=== PATIENT | male | born 1975 | race Caucasian/White ===

== ENCOUNTER 2022-02-12 19:28 | Inpatient (IN) ==
[2022-02-12] MEDS ORDERED: TORADOL IVP STA (20:04)
[2022-02-12 20:17] LABS: BASOPHILS % (AUTO) 0.3 % (0.0-3.0); EOSINOPHILS # (AUTO) 0.2 K/ul (0.0-0.7); EOSINOPHILS % (AUTO) 1.4 % (0.0-7.0); HEMATOCRIT 41.9 % (42.0-52.0); HEMOGLOBIN 14.4 g/dl (14.0-18.0); IMMATURE GRANULOCYTE % (AUTO) 0.2 % (0.0-5.0); LYMPHOCYTES # (AUTO) 2.7 K/uL (0.60-3.4); LYMPHOCYTES % (AUTO) 19.3 (10.0-50.0); MEAN CORPUSCULAR HEMOGLOBIN 29.7 pg (27.0-31.0); MEAN CORPUSCULAR HGB CONC 34.4 (31.8-35.4); MEAN CORPUSCULAR VOLUME 86.4 fl (80.0-94.0); MONOCYTES # (AUTO) 1.2 K/uL (0.4-2.0); MONOCYTES % (AUTO) 8.4 (0-10); NEUTROPHILS # (AUTO) 9.7 K/ul (2.0-6.9); NEUTROPHILS % (AUTO) 70.4 % (42.2-75.2); PLATELET COUNT 263 10^3/uL (140-440); RDW COEFFICIENT OF VARIATION 13.2 % (11.6-14.8); RED BLOOD COUNT 4.85 10^6/ul (4.70-6.10); WHITE BLOOD COUNT 13.76 K/ul (4.2-10.2)
[2022-02-12 20:29] LABS: ALBUMIN 4.21 g/dL (3.5-5.0); ALKALINE PHOSPHATASE 95.6 U/L (38-126); AMYLASE 125.5 U/L (30-110); ASPARTATE AMINO TRANSFERASE 17.9 U/L (17-59); BILIRUBIN,TOTAL 0.42 mg/dL (0.2-1.3); BLOOD UREA NITROGEN 5.4 mg/dL (9-20); CALCIUM 9.19 mg/dL (8.4-10.2); CARBON DIOXIDE 26.8 mmol/L (22-30.0); CREATININE 0.79 mg/dL (0.60-1.10); GLUCOSE 108.3 mg/dL (74-106); LIPASE 640.7 U/L (23-300); POTASSIUM 3.74 mmol/L (3.5-5.1); SODIUM 135.8 mmol/L (134.5-145); TOTAL PROTEIN 7.59 g/dL (6.3-8.2)
--- NOTE | 2022-02-12 20:49 | CT ---
EXAM: CT abdomen pelvis without contrast HISTORY: Left upper quadrant COMPARISON: None TECHNIQUE: Serial axial images of the abdomen pelvis were performed from the lung bases through the inferior pelvis without contrast. These were viewed in multiple planes. FINDINGS: Lung bases are clear. Liver is unremarkable. The gallbladder is mildly distended. Adrenal glands are normal. Kidneys are normal. Spleen is unremarkable. The pancreas demonstrates inflammatory stranding most pronounced s urrounding the body and tail the pancreas. The stomach is minimally distended. Small bowel in the abdomen pelvis is unremarkable. The appendix is unremarkable. The colon is unremarkable. Urinary bladder is distended. The prostate is promine nt. There is no pneumothorax or effusion. The osseous structures demonstrate no acute osseous abnor mality. IMPRESSION: 1. Findings are suggestive of pancreatitis. 2. The appendix is normal. All CT scans are performed using dose optimization techniques as appropriate to the performed exam an d include at least one of the following: Automated exposure control, adjustment of the mA and/or kV according t o size, and the use of iterative reconstruction technique.
[2022-02-12] MEDS ORDERED: LACTATED RINGERS 1,000 ML IV STA (21:08)
[2022-02-12] MEDS ORDERED: ZOFRAN 4 MG/2 ML IVP STA (21:08)
[2022-02-12] MEDS ORDERED: DILAUDID 1 MG/ML SYRINGE IVP STA (21:08)
--- NOTE | 2022-02-12 21:09 | ED.PDOC ---
General ED Provider: Dr. MAXX SONG Chief Complaint: Abdominal Pain Stated Complaint: Patient is a 46 year old male who comes to the ER with a one day history of left upper quadrant abdominal pain. pain comes and goes. Only thing that helps is cold compress. Time Seen by Provider: 02/12/22 19:42 Mode of Arrival: Walk-In Information Source: Patient Primary Care Provider: JOSÉ MANUEL WANG APRN, SHAN Nursing and Triage Documentation Reviewed and Agree: Yes Does patient meet sepsis criteria?: No System Inflammatory Response Syndrome: Not Applicable Sepsis Protocol: For patient's 13 years and over: Temp is 96.8 and below OR 101 and greater Pulse >90 BPM Resp >20/minute Acutely Altered Mental Status Are patient's symptoms suggestive of a new infection, such as: -Pneumonia -Skin, Soft Tissue -Endocarditis -UTI -Bone, Joint Infection -Implantable Device -Acute Abdominal Infection -Wound Infection -Meningitis -Blood Stream Catheter Infection -Unknown Review of Systems Review Of Systems Constitutional: Reports No symptoms Eyes: Reports No symptoms Ears, Nose, Mouth, Throat: Reports No symptoms Respiratory: Reports No symptoms Cardiac: Reports No symptoms GI: Reports Abdominal pain : Reports No symptoms Musculoskeletal: Reports No symptoms Skin: Reports No symptoms Neurological: Reports Anxiety Hematologic/Lymphatic: Reports No symptoms All Other Systems: Reviewed and Negative [facility] Medical History (Updated 02/13/22 @ 00:46 by MAKENNA CRAMER RN) No known health problems Family History Grandfather/Grandmother CHF (congestive heart failure) FATHER Diabetes Surgical History (Updated 02/12/22 @ 23:40 by MELISSA SAINI RN) History of endoscopic gastrointestinal surgery (~2001) Physical Exam Physical Exam Appearance: Reports Well-appearing Ill-appearing: Moderate Pain Distress: Severe Eyes: Reports YASSINE and EOMI ENT: Reports Nose normal and Oropharynx normal Neck: Not Examined Respiratory: Reports Airway patent and Breath sounds clear Cardiovascular: Reports RRR, Pulses normal and No rub GI/: Reports Soft and Tender (mild) Musculoskeletal: Reports Normal strength and ROM intact Skin: Reports Warm and Dry Neurological: Reports Motor intact Psychiatric: Reports Affect appropriate and Anxious Interpretation Radiology Interpretation Radiology Interpretation By: Radiologist Radiology Results: Positive (1. Findings are suggestive of pancreatitis. 2. The appendix is normal. ) Exam Interpreted: CT Scan Critical Care Note Critical Care Note Total Critical Care Time (mins): 30 Course Course Hematology/Chemistry: 02/13/22 05:18 02/13/22 05:18 Orders, Labs, Meds: Lab Review 02/12/22 02/12/22 02/12/22 20:10 20:10 21:49 WBC 13.76 H RBC 4.85 Hgb 14.4 Hct 41.9 L MCV 86.4 MCH 29.7 MCHC 34.4 RDW Coeff of Emre 13.2 Plt Count 263 Immature Gran % (Auto) 0.2 Neut % (Auto) 70.4 Lymph % (Auto) 19.3 [place] % (Auto) 8.4 Eos % (Auto) 1.4 Baso % (Auto) 0.3 Neut # (Auto) 9.7 H Lymph # (Auto) 2.7 [place] # (Auto) 1.2 Eos # (Auto) 0.2 Baso # (Auto) 0.0 Immature Gran # (Auto) 0.0 Sodium 135.8 Potassium 3.74 Chloride 101.0 Carbon Dioxide 26.8 Anion Gap 11.74 BUN 5.4 L Creatinine 0.79 Estimated GFR (MDRD) 106.00 BUN/Creatinine Ratio 6.83 Glucose 108.3 H Calcium 9.19 Total Bilirubin 0.42 AST 17.9 ALT 12.0 Alkaline Phosphatase 95.6 Total Protein 7.59 Albumin 4.21 Globulin 3.38 Albumin/Globulin Ratio 1.24 Amylase 125.5 H Lipase 640.7 H SARS CoV-2 RNA Rapid GAMALIEL Negative Orders Category Date Time Status PLACE PATIENT OBSERVATION .TO [facility] (MONITORED BED ADMISSION 02/12/22 22:05 Active ) ACTIVITY .Up ad Adele CARE 02/12/22 22:05 Active INTAKE & OUTPUT Q8HR CARE 02/12/22 22:06 Active TELEMETRY MONITORING TELE CARE 02/12/22 22:06 Active VITAL SIGNS Q8HR CARE 02/12/22 22:06 Active NOTHING BY MOUTH DIETARY 02/12/22 Breakfast Ordered ED IV/MEDIPORT/POWERPORT .ONCE EMERGENCY 02/12/22 20:04 Active AMYLASE DAILY@0600 LAB 02/13/22 05:18 Completed AMYLASE DAILY@0600 LAB 02/14/22 06:00 Ordered AMYLASE Stat LAB 02/12/22 20:10 Completed CBC W/ AUTO DIFF DAILY@0600 LAB 02/13/22 05:18 Completed CBC W/ AUTO DIFF DAILY@0600 LAB 02/14/22 06:00 Ordered CBC W/ AUTO DIFF Stat LAB 02/12/22 20:10 Completed COMPREHENSIVE METABOLIC PANEL DAILY@0600 LAB 02/13/22 05:18 Completed COMPREHENSIVE METABOLIC PANEL DAILY@0600 LAB 02/14/22 06:00 Ordered COMPREHENSIVE METABOLIC PANEL Stat LAB 02/12/22 20:10 Completed LIPASE DAILY@0600 LAB 02/13/22 05:18 Completed LIPASE DAILY@0600 LAB 02/14/22 06:00 Ordered LIPASE Stat LAB 02/12/22 20:10 Completed SARS COV-2 RNA RAPID GAMALIEL Stat LAB 02/12/22 21:49 Completed URINALYSIS C & S IF INDICATED Stat LAB 02/12/22 04:00 Completed 0.9 % Sodium Chloride [Saline Flush] MEDS 02/12/22 20:04 Active 1 syr IVF PRN PRN Hydromorphone HCl [Dilaudid 1 mg/ml Syringe] MEDS 02/12/22 21:08 Discontinued 1 mg IVP ONCE STA Hydromorphone HCl [Dilaudid 1 mg/ml Syringe] MEDS 02/12/22 22:05 Active 1 mg IVP Q4HR PRN Ketorolac Tromethamine [Toradol] MEDS 02/12/22 20:04 Discontinued 30 mg IVP ONCE STA Ondansetron HCl/Pf [Zofran 4 mg/2 ml] MEDS 02/12/22 21:08 Discontinued 4 mg IVP ONCE STA Ondansetron HCl/Pf [Zofran 4 mg/2 ml] MEDS 02/12/22 22:05 Active 4 mg IVP Q4H PRN Pantoprazole Sodium [Protonix IV] MEDS 02/13/22 09:00 Active 40 mg IVP DAILY Pantoprazole Sodium [Protonix IV] MEDS 02/12/22 21:34 Discontinued 40 mg IVP ONCE ONE Ringers Lactated Solution [Lactated Ringers] 1,000 ml MEDS 02/12/22 21:08 Discontinued IV BOLUS Sodium Chloride 0.9% [Sodium Chloride] 1,000 ml MEDS 02/12/22 22:10 Discontinued IV 150 mls/hr Sodium Chloride 0.9% [Sodium Chloride] 1,000 ml MEDS 02/12/22 21:34 Discontinued IV BOLUS RESUSCITATION STATUS Routine OTHERS 02/12/22 22:[address] ABD/PEL WO RENAL STONE PROT Stat RADS 02/12/22 20:04 Completed Medications Generic Name Dose Route Start Last Admin Trade Name Freq PRN Reason Stop Dose Admin Hydromorphone HCl 1 mg 02/12/22 22:05 02/13/22 04:09 Hydromorphone Hcl 1 Mg/Ml Syringe IVP 1 mg Q4HR PRN Administration Abdominal Pain Sodium Chloride 1,000 mls @ 150 mls/hr 02/13/22 12:00 02/13/22 09:44 Sodium Chloride IV 150 mls/hr Q6HR RADHA Administration Ondansetron HCl 4 mg 02/12/22 22:05 Ondansetron Hcl/Pf 4 Mg/2 Ml Sdv IVP Q4H PRN Nausea / Vomiting Pantoprazole Sodium 40 mg 02/13/22 09:00 02/13/22 09:36 Pantoprazole Sodium 40 Mg Vial IVP 40 mg DAILY RADHA Administration Sodium Chloride 1 syr 02/12/22 20:04 02/12/22 20:33 0.9% Sodium Chloride 10 Ml Disp.Syrin IVF 1 syr PRN PRN Administration To flush IV Discontinued Medications Generic Name Dose Route Start Last Admin Trade Name Freq PRN Reason Stop Dose Admin Hydromorphone HCl 1 mg 02/12/22 21:08 02/12/22 21:36 Hydromorphone Hcl 1 Mg/Ml Syringe IVP 02/12/22 21:09 1 mg ONCE STA Administration Lactated Ringer's 1,000 mls @ 1,000 mls/hr 02/12/22 21:08 02/12/22 21:39 Lactated Ringers IV 02/12/22 22:07 1,000 mls/hr BOLUS STA Administration Sodium Chloride 1,000 mls @ 1,000 mls/hr 02/12/22 21:34 02/12/22 21:39 Sodium Chloride IV 02/12/22 22:33 1,000 mls/hr BOLUS STA Administration Sodium Chloride 1,000 mls @ 150 mls/hr 02/12/22 22:10 02/12/22 23:24 Sodium Chloride IV 02/13/22 04:49 150 mls/hr .Q6H40M STA Administration Ketorolac Tromethamine 30 mg 02/12/22 20:04 02/12/22 20:29 Ketorolac Tromethamine 30 Mg/Ml Vial IVP 02/12/22 20:05 30 mg ONCE STA Administration Ondansetron HCl 4 mg 02/12/22 21:08 02/12/22 21:36 Ondansetron Hcl/Pf 4 Mg/2 Ml Sdv IVP 02/12/22 21:09 4 mg ONCE STA Administration Pantoprazole Sodium 40 mg 02/12/22 21:34 02/12/22 21:43 Pantoprazole Sodium 40 Mg Vial IVP 02/12/22 21:35 40 mg ONCE ONE Administration Vital Signs: Temp Pulse Resp BP Pulse Ox 02/12/22 19:29 98.3 F 81 20 149/82 H 96 Discharge Plan Discharge Patient Disposition: ADMITTED INPATIENT Discharge Problem: Acute pancreatitis ED Provider: MAXX SONG Condition: Good Physician Progress Note: []
[2022-02-12] MEDS ORDERED: PROTONIX IV IVP ONE (21:34)
[2022-02-12] MEDS ORDERED: SODIUM CHLORIDE 1,000 ML IV STA ×2 (21:34→22:10)
[2022-02-12] MEDS ORDERED: ZOFRAN 4 MG/2 ML IVP PRN (22:05)
[2022-02-12 23:33] VITALS: BMI 24.2
[2022-02-13] MEDS: DILAUDID 1 MG/ML SYRINGE IVP PRN ×2 (04:09→19:13)
[2022-02-13 04:14] LABS: BILIRUBIN,URINE Negative (NEGATIVE); CLARITY,URINE Clear (CLEAR); COLOR,URINE Yellow (YELLOW); GLUCOSE, URINE (UA) Negative (NEGATIVE); KETONES,URINE Negative (NEGATIVE); LEUKOCYTE ESTERASE ,URINE Negative (NEGATIVE); NITRITE,URINE Negative (NEGATIVE); PROTEIN,URINE Negative (NEGATIVE); URINE, BLOOD 1+ (NEGATIVE); UROBILINOGEN,URINE 0.2 (0.2)
[2022-02-13 04:18] LABS: MUCUS,URINE 1+ (NOT PRESENT); SQUAMOUS EPITHELIAL CELL,UR 0-2 (0-5); URINE RBC, MICROSCOPIC 0-2 (0-2)
[2022-02-13 05:47] LABS: BASOPHILS % (AUTO) 0.3 % (0.0-3.0); EOSINOPHILS # (AUTO) 0.2 K/ul (0.0-0.7); EOSINOPHILS % (AUTO) 2.1 % (0.0-7.0); HEMATOCRIT 37.8 % (42.0-52.0); HEMOGLOBIN 12.6 g/dl (14.0-18.0); IMMATURE GRANULOCYTE % (AUTO) 0.3 % (0.0-5.0); LYMPHOCYTES # (AUTO) 3.2 K/uL (0.60-3.4); LYMPHOCYTES % (AUTO) 28.9 (10.0-50.0); MEAN CORPUSCULAR HEMOGLOBIN 29.6 pg (27.0-31.0); MEAN CORPUSCULAR HGB CONC 33.3 (31.8-35.4); MEAN CORPUSCULAR VOLUME 88.7 fl (80.0-94.0); MONOCYTES # (AUTO) 1.1 K/uL (0.4-2.0); MONOCYTES % (AUTO) 9.9 (0-10); NEUTROPHILS # (AUTO) 6.5 K/ul (2.0-6.9); NEUTROPHILS % (AUTO) 58.5 % (42.2-75.2); PLATELET COUNT 232 10^3/uL (140-440); RDW COEFFICIENT OF VARIATION 13.4 % (11.6-14.8); RED BLOOD COUNT 4.26 10^6/ul (4.70-6.10); WHITE BLOOD COUNT 11.16 K/ul (4.2-10.2)
[2022-02-13 06:06] LABS: ALANINE AMINOTRANSFERASE 9.8 U/L (0-50); ALBUMIN 3.45 g/dL (3.5-5.0); ALKALINE PHOSPHATASE 75.7 U/L (38-126); AMYLASE 85.8 U/L (30-110); ASPARTATE AMINO TRANSFERASE 15.2 U/L (17-59); BILIRUBIN,TOTAL 0.52 mg/dL (0.2-1.3); BLOOD UREA NITROGEN 5.5 mg/dL (9-20); CALCIUM 8.31 mg/dL (8.4-10.2); CARBON DIOXIDE 28.6 mmol/L (22-30.0); CREATININE 0.76 mg/dL (0.60-1.10); GLUCOSE 95.2 mg/dL (74-106); LIPASE 511.7 U/L (23-300); SODIUM 136.9 mmol/L (134.5-145); TOTAL PROTEIN 6.36 g/dL (6.3-8.2)
[2022-02-13 06:15] LABS: POTASSIUM 3.85 mmol/L (3.5-5.1)
[2022-02-13] MEDS: PROTONIX IV IVP SCH (09:36)
[2022-02-13] MEDS: SODIUM CHLORIDE 1,000 ML IV SCH ×2 (09:44→13:49)
--- NOTE | 2022-02-13 09:46 | US ---
EXAM: Ultrasound abdomen limited. HISTORY: Abdominal pain. COMPARISON: CT 1 day prior. TECHNIQUE: Abdominal, real time with image documentation: limited (e.g., single organ, quadrant, fo llow-up) FINDINGS: The liver demonstrates homogeneous echotexture without intrahepatic biliary dilatation. P ortal venous flow is normal in direction. The gallbladder is without shadowing stones, wall thickeni ng or pericholecystic fluid. Common duct measures approximately 0.4 cm. Decreased echogenicity surr ounding the pancreatic tail. Visualized right kidney normal. IMPRESSION: 1. Pancreatitis involving the tail. 2. No sonographic abnormality of the liver, gallbladder or biliary system.
--- NOTE | 2022-02-13 12:47 | PCM.PROG ---
Date Seen by Provider: 02/13/22 Time Seen by Provider: 09:00 Subjective: Patient states that he feels better today. Pain is resolved after Dilaudid @ 3 am today. Wants to eat. Objective: Vitals: T=97.5 F, P=73, R=18, WD=498/72, SPO2=98 HEENT: [Mucus membranes moist] Neck: [supple] Lungs: [Clinically clear Bilaterally ] CVS: [Regular S1 and S 2 only ] Abdomen: [soft Not tender to palpation ] Extremities: [NO edema ] Neurological: [AAox3 no focal deficits, Speech is clear.] Skin: [No skin rash ] Lab/Tests/Diagnostic Imaging: [ Abnormal Lab Results 02/12/22 02/12/22 02/12/22 20:10 20:10 21:49 WBC 13.76 H RBC 4.85 Hgb 14.4 Hct 41.9 L MCV 86.4 MCH 29.7 MCHC 34.4 RDW Coeff of Emre 13.2 Plt Count 263 Immature Gran % (Auto) 0.2 Neut % (Auto) 70.4 Lymph % (Auto) 19.3 [place] % (Auto) 8.4 Eos % (Auto) 1.4 Baso % (Auto) 0.3 Neut # (Auto) 9.7 H Lymph # (Auto) 2.7 [place] # (Auto) 1.2 Eos # (Auto) 0.2 Baso # (Auto) 0.0 Immature Gran # (Auto) 0.0 Sodium 135.8 Potassium 3.74 Chloride 101.0 Carbon Dioxide 26.8 Anion Gap 11.74 BUN 5.4 L Creatinine 0.79 Estimated GFR (MDRD) 106.00 BUN/Creatinine Ratio 6.83 Glucose 108.3 H Calcium 9.19 Total Bilirubin 0.42 AST 17.9 ALT 12.0 Alkaline Phosphatase 95.6 Total Protein 7.59 Albumin 4.21 Globulin 3.38 Albumin/Globulin Ratio 1.24 Amylase 125.5 H Lipase 640.7 H Urine Color Urine Clarity Urine pH Ur Specific [place] Urine Protein Urine Glucose (UA) Urine Ketones Urine Blood Urine Nitrite Urine Bilirubin Urine Urobilinogen Ur Leukocyte Esterase Urine Microscopic RBC Urine Microscopic WBC Ur Squamous Epith Cells Urine Mucus SARS CoV-2 RNA Rapid GAMALIEL Negative 02/13/22 02/13/22 02/13/22 04:00 05:18 05:18 WBC 11.16 H RBC 4.26 L Hgb 12.6 L Hct 37.8 L MCV 88.7 MCH 29.6 MCHC 33.3 RDW Coeff of Emre 13.4 Plt Count 232 Immature Gran % (Auto) 0.3 Neut % (Auto) 58.5 Lymph % (Auto) 28.9 [place] % (Auto) 9.9 Eos % (Auto) 2.1 Baso % (Auto) 0.3 Neut # (Auto) 6.5 Lymph # (Auto) 3.2 [place] # (Auto) 1.1 Eos # (Auto) 0.2 Baso # (Auto) 0.0 Immature Gran # (Auto) 0.0 Sodium 136.9 Potassium 3.85 Chloride 105.0 Carbon Dioxide 28.6 Anion Gap 7.15 BUN 5.5 L Creatinine 0.76 Estimated GFR (MDRD) 110.00 BUN/Creatinine Ratio 7.23 Glucose 95.2 Calcium 8.31 L Total Bilirubin 0.52 AST 15.2 L ALT 9.8 Alkaline Phosphatase 75.7 Total Protein 6.36 Albumin 3.45 L Globulin 2.91 Albumin/Globulin Ratio 1.18 Amylase 85.8 D Lipase 511.7 H Urine Color Yellow Urine Clarity Clear Urine pH 6.0 Ur Specific [place] 1.015 Urine Protein Negative Urine Glucose (UA) Negative Urine Ketones Negative Urine Blood 1+ H Urine Nitrite Negative Urine Bilirubin Negative Urine Urobilinogen 0.2 Ur Leukocyte Esterase Negative Urine Microscopic RBC 0-2 Urine Microscopic WBC 2-5 Ur Squamous Epith Cells 0-2 Urine Mucus 1+ SARS CoV-2 RNA Rapid GAMALIEL ] (1) Acute pancreatitis: Status: Acute Code(s): K85.90 - Acute pancreatitis without necrosis or infection, unspecified SNOMED Code(s): 675453617 Assessment: Pain is improving with fluids and Pain medications Lipase better today Amylase normal Plan: Continue IV fluids and Pain medications. get an US this AM To rule out gall stone pancreatitis.
[2022-02-14 05:36] LABS: BASOPHILS % (AUTO) 0.4 % (0.0-3.0); EOSINOPHILS # (AUTO) 0.3 K/ul (0.0-0.7); EOSINOPHILS % (AUTO) 3.1 % (0.0-7.0); HEMATOCRIT 37.2 % (42.0-52.0); HEMOGLOBIN 12.5 g/dl (14.0-18.0); IMMATURE GRANULOCYTE % (AUTO) 0.2 % (0.0-5.0); LYMPHOCYTES # (AUTO) 2.5 K/uL (0.60-3.4); LYMPHOCYTES % (AUTO) 22.5 (10.0-50.0); MEAN CORPUSCULAR HEMOGLOBIN 29.7 pg (27.0-31.0); MEAN CORPUSCULAR HGB CONC 33.6 (31.8-35.4); MEAN CORPUSCULAR VOLUME 88.4 fl (80.0-94.0); MONOCYTES # (AUTO) 0.8 K/uL (0.4-2.0); MONOCYTES % (AUTO) 7.4 (0-10); NEUTROPHILS # (AUTO) 7.3 K/ul (2.0-6.9); NEUTROPHILS % (AUTO) 66.4 % (42.2-75.2); PLATELET COUNT 239 10^3/uL (140-440); RDW COEFFICIENT OF VARIATION 13.2 % (11.6-14.8); RED BLOOD COUNT 4.21 10^6/ul (4.70-6.10); WHITE BLOOD COUNT 10.91 K/ul (4.2-10.2)
[2022-02-14 05:42] LABS: CHOLESTEROL 161.9 mg/dL (0-200); HDL CHOLESTEROL 33.2 mg/dL (35-60); TRIGLYCERIDES 107.2 mg/dL (0-150)
[2022-02-14 06:21] LABS: ALBUMIN 3.37 g/dL (3.5-5.0); ALKALINE PHOSPHATASE 82.1 U/L (38-126); AMYLASE 88.2 U/L (30-110); ASPARTATE AMINO TRANSFERASE 18.3 U/L (17-59); BILIRUBIN,TOTAL 0.48 mg/dL (0.2-1.3); BLOOD UREA NITROGEN 5.9 mg/dL (9-20); CALCIUM 8.35 mg/dL (8.4-10.2); CARBON DIOXIDE 23.8 mmol/L (22-30.0); CHLORIDE 103.9 mmol/L (98-107); CREATININE 0.68 mg/dL (0.60-1.10); GLUCOSE 85.2 mg/dL (74-106); LIPASE 565.1 U/L (23-300); POTASSIUM 3.83 mmol/L (3.5-5.1); SODIUM 136.9 mmol/L (134.5-145); TOTAL PROTEIN 6.55 g/dL (6.3-8.2)
[2022-02-14] MEDS: SODIUM CHLORIDE 1,000 ML IV SCH ×4 (08:22→23:06)
[2022-02-14] MEDS: PROTONIX IV IVP SCH (08:53)
--- NOTE | 2022-02-14 12:01 | PCM.PROG ---
Date Seen by Provider: 02/14/22 Time Seen by Provider: 11:58 Subjective: pt improving, tolerating liquid diet, not needing pain meds Objective: Vitals: T=98.0 F, P=98, R=18, LH=531/84, SPO2=98 HEENT: []conjunctiva clear Neck: []supple Lungs: [] no respiratory distress CVS: [] Abdomen: []nondistended, soft and no rebound Extremities: [] Neurological: []alert and oriented Skin: []pink Lab/Tests/Diagnostic Imaging: [] lipase increased from 511 to 565 (1) Acute pancreatitis: Status: Acute Code(s): K85.90 - Acute pancreatitis without necrosis or infection, unspecified SNOMED Code(s): 874904693 Assessment: pancreatitis Plan: if pt tolerates advancing diet, requires no pain meds and lipase decreases, then will d/c home tomorrow care to Dr Monteiro at 19:00
[2022-02-14] MEDS: DILAUDID 1 MG/ML SYRINGE IVP PRN (17:26)
[2022-02-15] MEDS: SODIUM CHLORIDE 1,000 ML IV SCH ×4 (05:54→20:52)
[2022-02-15] MEDS: PROTONIX IV IVP SCH (08:32)
--- NOTE | 2022-02-15 09:46 | PCM.PROG ---
Date Seen by Provider: 02/15/22 Time Seen by Provider: 09:44 Subjective: pt did not tolerated advancing diet yesterday and required dilaudid Objective: Vitals: T=98.1 F, P=57, R=16, OK=440/77, SPO2=97 HEENT: []conjunctiva clear Neck: []supple Lungs: [] no respiratory distress CVS: []RRR Abdomen: []soft and nondistended Extremities: []ambulatory Neurological: []alert and oriented Skin: []pink Lab/Tests/Diagnostic Imaging: [] lipase 363 is decreasing (1) Acute pancreatitis: Status: Acute Code(s): K85.90 - Acute pancreatitis without necrosis or infection, unspecified SNOMED Code(s): 639702542 Plan: pt should be able to discharge tomorrow care to Dr Purdy at 19:00
[2022-02-15 14:23] VITALS: TEMP 97.8
[2022-02-15] MEDS ORDERED: TORADOL IVP PRN (17:35)
[2022-02-16] MEDS: SODIUM CHLORIDE 1,000 ML IV SCH (03:27)
[2022-02-16] MEDS ORDERED: DEXTROSE 5%-1/2NS IV SOLUTION 1,000 ML IV SCH (03:30)
[2022-02-16 05:43] VITALS: BP 128/78
[2022-02-16] MEDS: PROTONIX IV IVP SCH (09:51)
--- NOTE | 2022-02-16 10:38 | PCM.DC ---
Final Diagnosis: (1) Acute pancreatitis: Status: Acute Code(s): K85.90 - Acute pancreatitis without necrosis or infection, unspecified SNOMED Code(s): 907103034 Medications at Discharge: Ambulatory Orders Medication Instructions Recorded 1 [No Reported Medications] 02/12/22
--- NOTE | 2022-02-16 10:39 | PCM.DC ---
Final Diagnosis: Date of Admit - 02/12/22 Date of Discharge - 02/16/22 Admitting dx - Acute pancreatitis Discharge dx - Acute pancreatitis, resolving Physical Exam Appearance: Well-appearing Ill-appearing: None Pain Distress: None Eyes: YASSINE ENT: Oropharynx normal Neck: Supple Respiratory: Airway patent and Breath sounds clear Cardiovascular: RRR and Pulses normal GI/: Soft, Nontender, No masses and Bowel sounds normal Musculoskeletal: Normal strength, ROM intact and No edema Skin: Warm, Dry and Normal color Neurological: Sensation intact and Motor intact Psychiatric: Affect appropriate and Mood appropriate (1) Acute pancreatitis: Status: Acute Code(s): K85.90 - Acute pancreatitis without necrosis or infection, unspecified SNOMED Code(s): 233281466 Reason for Hospitalization: Acute pancreatitis, no source found, admitted for pain control. Prognosis/Condition at Discharge: Stable, good condition. Medications at Discharge: Ambulatory Orders None Medication Instructions Recorded 1 [No Reported Medications] 02/12/22 Lab/Diagnostics: Laboratory Tests 02/12/22 02/12/22 02/12/22 20:10 20:10 21:49 WBC 13.76 H RBC 4.85 Hgb 14.4 Hct 41.9 L MCV 86.4 MCH 29.7 MCHC 34.4 RDW Coeff of Emre 13.2 Plt Count 263 Immature Gran % (Auto) 0.2 Neut % (Auto) 70.4 Lymph % (Auto) 19.3 [place] % (Auto) 8.4 Eos % (Auto) 1.4 Baso % (Auto) 0.3 Neut # (Auto) 9.7 H Lymph # (Auto) 2.7 [place] # (Auto) 1.2 Eos # (Auto) 0.2 Baso # (Auto) 0.0 Immature Gran # (Auto) 0.0 Sodium 135.8 Potassium 3.74 Chloride 101.0 Carbon Dioxide 26.8 Anion Gap 11.74 BUN 5.4 L Creatinine 0.79 Estimated GFR (MDRD) 106.00 BUN/Creatinine Ratio 6.83 Glucose 108.3 H Calcium 9.19 Total Bilirubin 0.42 AST 17.9 ALT 12.0 Alkaline Phosphatase 95.6 Total Protein 7.59 Albumin 4.21 Globulin 3.38 Albumin/Globulin Ratio 1.24 Triglycerides Cholesterol LDL Cholesterol, Calc VLDL Cholesterol HDL Cholesterol Cholesterol/HDL Ratio Amylase 125.5 H Lipase 640.7 H Urine Color Urine Clarity Urine pH Ur Specific [place] Urine Protein Urine Glucose (UA) Urine Ketones Urine Blood Urine Nitrite Urine Bilirubin Urine Urobilinogen Ur Leukocyte Esterase Urine Microscopic RBC Urine Microscopic WBC Ur Squamous Epith Cells Urine Mucus SARS CoV-2 RNA Rapid GAMALIEL Negative 02/13/22 02/13/22 02/13/22 04:00 05:18 05:18 WBC 11.16 H RBC 4.26 L Hgb 12.6 L Hct 37.8 L MCV 88.7 MCH 29.6 MCHC 33.3 RDW Coeff of Emre 13.4 Plt Count 232 Immature Gran % (Auto) 0.3 Neut % (Auto) 58.5 Lymph % (Auto) 28.9 [place] % (Auto) 9.9 Eos % (Auto) 2.1 Baso % (Auto) 0.3 Neut # (Auto) 6.5 Lymph # (Auto) 3.2 [place] # (Auto) 1.1 Eos # (Auto) 0.2 Baso # (Auto) 0.0 Immature Gran # (Auto) 0.0 Sodium 136.9 Potassium 3.85 Chloride 105.0 Carbon Dioxide 28.6 Anion Gap 7.15 BUN 5.5 L Creatinine 0.76 Estimated GFR (MDRD) 110.00 BUN/Creatinine Ratio 7.23 Glucose 95.2 Calcium 8.31 L Total Bilirubin 0.52 AST 15.2 L ALT 9.8 Alkaline Phosphatase 75.7 Total Protein 6.36 Albumin 3.45 L Globulin 2.91 Albumin/Globulin Ratio 1.18 Triglycerides Cholesterol LDL Cholesterol, Calc VLDL Cholesterol HDL Cholesterol Cholesterol/HDL Ratio Amylase 85.8 D Lipase 511.7 H Urine Color Yellow Urine Clarity Clear Urine pH 6.0 Ur Specific [place] 1.015 Urine Protein Negative Urine Glucose (UA) Negative Urine Ketones Negative Urine Blood 1+ H Urine Nitrite Negative Urine Bilirubin Negative Urine Urobilinogen 0.2 Ur Leukocyte Esterase Negative Urine Microscopic RBC 0-2 Urine Microscopic WBC 2-5 Ur Squamous Epith Cells 0-2 Urine Mucus 1+ SARS CoV-2 RNA Rapid GAMALIEL 02/14/22 02/14/22 02/14/22 05:11 05:11 05:11 WBC 10.91 H RBC 4.21 L Hgb 12.5 L Hct 37.2 L MCV 88.4 MCH 29.7 MCHC 33.6 RDW Coeff of Emre 13.2 Plt Count 239 Immature Gran % (Auto) 0.2 Neut % (Auto) 66.4 Lymph % (Auto) 22.5 [place] % (Auto) 7.4 Eos % (Auto) 3.1 Baso % (Auto) 0.4 Neut # (Auto) 7.3 H Lymph # (Auto) 2.5 [place] # (Auto) 0.8 Eos # (Auto) 0.3 Baso # (Auto) 0.0 Immature Gran # (Auto) 0.0 Sodium 136.9 Potassium 3.83 Chloride 103.9 Carbon Dioxide 23.8 Anion Gap 13.03 BUN 5.9 L Creatinine 0.68 Estimated GFR (MDRD) 126.00 BUN/Creatinine Ratio 8.67 Glucose 85.2 Calcium 8.35 L Total Bilirubin 0.48 AST 18.3 ALT 11.0 Alkaline Phosphatase 82.1 Total Protein 6.55 Albumin 3.37 L Globulin 3.18 Albumin/Globulin Ratio 1.05 Triglycerides 107.2 Cholesterol 161.9 LDL Cholesterol, Calc 107 VLDL Cholesterol 21 HDL Cholesterol 33.2 L Cholesterol/HDL Ratio 4.9 Amylase 88.2 Lipase 565.1 H Urine Color Urine Clarity Urine pH Ur Specific [place] Urine Protein Urine Glucose (UA) Urine Ketones Urine Blood Urine Nitrite Urine Bilirubin Urine Urobilinogen Ur Leukocyte Esterase Urine Microscopic RBC Urine Microscopic WBC Ur Squamous Epith Cells Urine Mucus SARS CoV-2 RNA Rapid GAMALIEL 02/15/22 02/16/22 04:58 05:05 WBC RBC Hgb Hct MCV MCH MCHC RDW Coeff of Emre Plt Count Immature Gran % (Auto) Neut % (Auto) Lymph % (Auto) [place] % (Auto) Eos % (Auto) Baso % (Auto) Neut # (Auto) Lymph # (Auto) [place] # (Auto) Eos # (Auto) Baso # (Auto) Immature Gran # (Auto) Sodium Potassium Chloride Carbon Dioxide Anion Gap BUN Creatinine Estimated GFR (MDRD) BUN/Creatinine Ratio Glucose Calcium Total Bilirubin AST ALT Alkaline Phosphatase Total Protein Albumin Globulin Albumin/Globulin Ratio Triglycerides Cholesterol LDL Cholesterol, Calc VLDL Cholesterol HDL Cholesterol Cholesterol/HDL Ratio Amylase Lipase 363.9 H 183.0 Urine Color Urine Clarity Urine pH Ur Specific [place] Urine Protein Urine Glucose (UA) Urine Ketones Urine Blood Urine Nitrite Urine Bilirubin Urine Urobilinogen Ur Leukocyte Esterase Urine Microscopic RBC Urine Microscopic WBC Ur Squamous Epith Cells Urine Mucus SARS CoV-2 RNA Rapid GAMALIEL c: JOSÉ MANUEL WANG APRN, [employer]; MAXX SONG MD EXAM: Ultrasound abdomen limited. HISTORY: Abdominal pain. COMPARISON: CT 1 day prior. TECHNIQUE: Abdominal, real time with image documentation: limited (e.g., single organ, quadrant, follow-up) FINDINGS: The liver demonstrates homogeneous echotexture without intrahepatic biliary dilatation. Portal venous flow is normal in direction. The gallbladder is without shadowing stones, wall thickening or pericholecystic fluid. Common duct measures approximately 0.4 cm. Decreased echogenicity surrounding the pancreatic tail. Visualized right kidney normal. IMPRESSION: 1. Pancreatitis involving the tail. 2. No sonographic abnormality of the liver, gallbladder or biliary system. CT abdomen/pelvis FINDINGS: Lung bases are clear. Liver is unremarkable. The gallbladder is mildly distended. Adrenal glands are normal. Kidneys are normal. Spleen is unremarkable. The pancreas demonstrates inflammatory stranding most pronounced surrounding the body and tail the pancreas. The stomach is minimally distended. Small bowel in the abdomen pelvis is unremarkable. The appendix is unremarkable. The colon is unremarkable. Urinary bladder is distended. The prostate is prominent. There is no pneumothorax or effusion. The osseous structures demonstrate no acute osseous abnormality. IMPRESSION: 1. Findings are suggestive of pancreatitis. 2. The appendix is normal. Education Provided to Patient and Family: Per nursing staff Follow-ups: PCP within a week. Discharge Disposition: Home Hospital Course: Admitted for gut rest with IVF and pain med as needed. Source unclear, no clinical signs of gallstones, he denies any sig alcohol use, TG level normal. Improved with standard therapy, ready for d/c, full recovery. Plan: Home. Dietary advice. Recheck with PCP. This discharge done at a [id number] exam with total duration of time preparing d/c of 40 minutes.
== END 2022-02-16 11:21 | disposition home or self-care (01) | DRG 440 ==
LOC: MEDSURG A 19:28 → ED 19:28 → OBSVTOIN 22:45 → MEDSURG A 23:14
PROVIDERS: ADMIT Internal Medicine Geriatric Medicine; ATTEND Emergency Medicine Emergency Medical Services